=== PATIENT | male | born 1985 | race Caucasian/White ===

== ENCOUNTER 2017-11-03 01:16 | Emergency (ER) | payer MEDICAID ==
[~2017-11-03] VITALS: Ht 177.8 cm; Wt 77.3 kg
[2017-11-03 01:21] VITALS: Ht 177.8 cm; Wt 77.3 kg
[2017-11-03] MEDS ORDERED: KEFLEX500 MG PO (03:24)
[2017-11-03 03:30] VITALS: BP 112/67
== END 2017-11-03 03:31 | disposition home or self-care (01) ==
LOC: D.ER 01:16
DX: S61.411A Laceration without foreign body of right hand, initial encounter (principal); W26.9XXA Contact with unspecified sharp object(s), initial encounter; Y93.89 Activity, other specified; Y92.019 Unspecified place in single-family (private) house as the place of occurrence of the external cause

== ENCOUNTER 2019-12-30 01:19 | Emergency (ER) | payer SELFPAY ==
[~2019-12-30] VITALS: Ht 177.8 cm; Wt 81.8 kg
[~2019-12-30 01:19] MED LIST: KEFLEX500 MG PO
[2019-12-30 01:24] VITALS: BP 156/101; Ht 177.8 cm; Wt 81.8 kg
[2019-12-30] MEDS ORDERED: NORCO 7.5-3251 EACH GT (01:29)
[2019-12-30] MEDS ORDERED: DOXYCYCLINE HY100 M2 PO (01:57)
[2019-12-30 02:20] LABS: BILIRUBIN NEGATIVE (NEGATIVE); KETONE NEGATIVE (NEGATIVE); NITRITE NEGATIVE (NEGATIVE); UROBILINOGEN NORMAL (NORMAL)
[2019-12-30 02:22] LABS: BACTERIA NONE SEEN /hpf (NEGATIVE); EPITHELIAL CELLS 0-5 /hpf (0-5); RED CELLS - URINE 0-5 /hpf (0-5); URIC ACID CRYSTALS 0-5 \\hpf (NONE SEEN); WHITE CELLS - URINE 0-5 /hpf (NEGATIVE)
== END 2019-12-30 02:18 | disposition home or self-care (01) ==
LOC: D.ER 01:19
PROVIDERS: Family Medicine
DX: N45.1 Epididymitis (principal); R10.30 Lower abdominal pain, unspecified